=== PATIENT | male | born 1975 | race Caucasian/White ===

== ENCOUNTER 2025-01-13 12:15 | Emergency (ER) | payer OTHER, SELFPAY ==
[2025-01-13 12:17] VITALS: BP 202/107; PULSE 131; RESP 18; TEMP 36.9; O2SAT 98; BMI 50.6
--- NOTE | 2025-01-13 12:54 | EKG12_ITS ---
Test Reason : SYNCOPE Blood Pressure : */* mmHG Vent. Rate : 120 BPM Atrial Rate : 120 BPM P-R Int : 182 ms QRS Dur : 74 ms QT Int : 310 ms P-R-T Axes : 56 23 4 degrees QTcB Int : 438 ms Sinus tachycardia Possible Left atrial enlargement Nonspecific T wave abnormality Abnormal ECG Confirmed by TIFFANIE BARROW, OTTONIEL ([id number]), book editor DEYVI ALCANTAR ([id number]) on 01/14/2025 6:51:14 AM Referred By: UG/SOFIA Confirmed By: OTTONIEL MORENO MD
[2025-01-13 13:06] LABS: Hematocrit 46.5 % (40-54); Hemoglobin 15.8 g/dL (13.0-16.5); Immature Granulocytes Count 0.030 X10^3/uL (0.0-0.0); Mean Corp Hgb Conc 34.0 g/dL (32-36); Mean Corpuscular Volume 86.3 fL (80-94); Mean Platelet Vol. 10.2 fl (6.2-12.0); NRBC Flagged by Analyzer 0 % (0-5); Platelet Count 241 K/mm3 (150-450); RBC Distribution Width CV 12.4 % (11.6-14.6); RBC Distribution Width SD 39.0 fl (35.1-43.9); Red Blood Count 5.39 M/mm3 (4.6-6.2); White Blood Count 8.3 K/mm3 (4.4-11.0)
[2025-01-13 13:16] VITALS: BP 180/81; PULSE 105; RESP 18; O2SAT 99
[2025-01-13 13:16] LABS: D-Dimer Quantitative (DVT/PE) 0.29 FEU/ug/m (0.27-0.49)
[2025-01-13 13:21] LABS: Troponin T High Sensitivity < 6 ng/L (<=22)
[2025-01-13 13:29] LABS: Anion Gap 15 (5-15); BUN 16 mg/dL (4-19); BUN/Creat Ratio 14.5 RATIO (10-20); Calcium,Total 8.8 mg/dL (7.6-11.0); Carbon Dioxide 23.5 mmol/L (21.0-32.0); Chloride 99 mmol/L (98-108); Estimated Creatinine Clearance 111.24 ml/min (50-250); Glucose 186 mg/dL (70-99); Potassium 3.1 mmol/L (3.3-5.1)
[2025-01-13 14:00] VITALS: BP 155/83; PULSE 100; RESP 18; O2SAT 99
[2025-01-13 15:00] VITALS: BP 132/71; PULSE 104; O2SAT 98
[2025-01-13 15:14] LABS: Troponin T High Sens 2 HR < 6 ng/L (<=22)
[2025-01-13 16:00] VITALS: BP 120/75; PULSE 101; RESP 9; O2SAT 98
--- NOTE | 2025-01-13 16:22 | EX.ED.DYSGE1 ---
HPI History of Present Illness Chief Complaint: Syncope Detail of Chief Complaint: Dizziness and elevated blood pressure and not feeling right Informant: patient Onset/Context/Timing Onset: Today Context: Sudden Onset Timing: Intermittent Quality: Dizziness and bilateral blurred vision with palpitations Location: Presents from work Current Severity: Detailed HPI narrative Maximum Severity: Detailed HPI narrative Worsened by: Upright position Relieved by: Not applicable Associated Symptoms Associated Symptoms: No other symptoms Narrative Narrative: Patient is a 49-year-old male. He has known history of hypertension. He presents from work because he felt dizzy . When asked to define dizzy he did not describe the room or him spinning. He did not endorse lightheadedness. He presently denies blurred vision. He denied double vision or loss of vision. He denied trouble with speech or swallowing. He denied chest pressure, tightness or heaviness. He has no history of VTE and has no risk factors for VTE. He denies leg pain, swelling discoloration. He denies abdominal pain. He did endorse mild nausea. He denied vomiting, diarrhea or constipation. Denies black or maroon-colored stool. He denies urologic symptoms. He denies neurologic symptoms. He has no complaint of anesthesia or paresthesia upper or lower extremity. He denies weakness in his arms or legs. Prior similar symptoms: No Recent Illness/Hospitalization: [facility] Medical History Hypertension Home Medications ?Medication ?Instructions ?Recorded ?Last Taken ?Type chlorthalidone 25 mg tablet 25 mg PO DAILY 01/13/25 01/12/25 History losartan 25 mg tablet 25 mg PO DAILY 01/13/25 01/12/25 History Allergy/AdvReac Type Severity Reaction Status Date / Time No Known Allergies Allergy Verified 01/13/25 12:18 Social History (Updated 01/13/25 @ 16:[address] Darrian De Leon MD) household members: spouse Smoking Status: Never smoker ROS ROS ED Constitutional Constitutional ED: Denies chills, fever(s), subjective, sweats or weight loss Eyes Eyes: Reports blurry vision bilateral; Denies change in vision or diplopia ENT ENT ED: Denies ear pain, rhinorrhea or sore throat Cardiovascular Cardiovascular: Denies chest pain, orthopnea, palpitations, paroxysmal nocturnal dyspnea or racing heartbeat Respiratory/Chest Respiratory/Chest: Denies cough, dyspnea, dyspnea on exertion, orthopnea or paroxysmal nocturnal dyspnea Gastrointestinal Gastrointestinal: Denies abdominal pain, constipation, diarrhea, melena, nausea or vomiting Genitourinary Genitourinary ED: Denies dysuria, hematuria or urinary frequency Musculoskeletal Musculoskeletal: Denies arthralgias, back pain or myalgias Integumentary Denies rash Neurologic Neurologic: Denies headache(s), paresthesias or weakness Psychiatric Psychiatric: Denies anxiety or depression Endocrine Endocrinology: Denies cold intolerance or heat intolerance Hematologic/Lymphatic Hematologic/Lymphatic: Reports systems reviewed and no addt'l complaints, except as documented Allergic/Immunologic Allergic/Immunologic ED: Denies mouth swelling, tongue swelling or urticaria EXAM Physical Exam Const Vital Signs: 01/13/25 12:17 01/13/25 13:16 01/13/25 14:00 Temperature 98.4 F Temperature Source Oral Pulse Rate 131 H 105 H 100 Respiratory Rate 18 18 18 Blood Pressure 202/107 H 180/81 H 155/83 H Blood Pressure Mean 138 114 107 Pulse Ox 98 99 99 Oxygen Delivery Method Room Air 01/13/25 15:00 01/13/25 16:00 Temperature Temperature Source Pulse Rate 104 H 101 H Respiratory Rate 9 L Blood Pressure 132/71 H 120/75 Blood Pressure Mean 91 90 Pulse Ox 98 98 Oxygen Delivery Method Room Air Room Air Positive well nourished and well developed Constitutional Narrative: Blood pressure is elevated. He states at home his blood pressure systolic is in the 120s. States it is normally 140 when he sees his doctor. General Appearance ED: well developed and NAD; Negative for cyanotic, diaphoretic or pallor HEENT Reports moist mucous membranes HEENT Narrative: Head is atraumatic and normocephalic. Ears are normal. Nares patent. Posterior pharynx normal. Uvula midline. No deviation tongue or protrusion. Eyes PERRL and EOMs intact bilaterally General Eye ED: Negative for pale conjunctiva or scleral icterus Neck no lymphadenopathy, supple and no JVD Chest Wall inspection of chest normal and palpation of chest normal Resp normal respiratory effort and clear to auscultation bilaterally Cardio regular rhythm, S1 normal heart sound, S2 normal heart sound and no murmurs; Negative for regular rate Rate: tachycardic GI normal to inspection, nondistended, normoactive bowel sounds, non-tender, non-distended and no masses; Negative for hepatosplenomegaly Back/Spine no CVA tenderness Extremity normal to inspection Extremity Narrative: There is no asymmetry, swelling, discoloration, leg vein distention, palpable cords or tenderness along the distribution of the deep venous system. Neuro oriented x3, CN's II-XII intact bilaterally and no sensory deficits noted Neuro Narrative: There is no dysmetria. Negative Babinski sign bilaterally. No clonus at the ankles. Sensorium / Orientation: alert Motor Exam: strength 5/5 throughout Psych mental status grossly normal Skin no rashes or lesions noted, no wounds and skin turgor normal General Skin Exam: elasticity normal; Negative for jaundice or pallor MDM MDM MDM Narrative Medical decision making narrative: Differential diagnosis is tachycardia due to anxiety, infectious process, pulmonary embolus and anemia. He does not have symptoms to suggest hyperthyroidism. His blood pressure is elevated. This may have been the reason for his transient bilateral blurred vision. Will obtain appropriate blood work to assess for endorgan dysfunction. EKG was obtained to see if there is any evidence of ischemia, findings suggest preexcitation syndrome or right heart strain that would suggest pulmonary embolus. Lab Data Attestation: I reviewed the patient's lab results. Lab results narrative: CBC is normal. 1st and 2nd troponin are less than 6. This rules out cardiac disease. TSH was obtained to evaluate for thyroid disease and negative. Electrolyte panel is remarked for slight decrease in potassium at 3.1. This would not explain patient's symptoms. Glucose is elevated 186. He does not have history of diabetes. He will need to follow-up to have his blood sugar reassessed again. Labs: Laboratory Results - last 24 hr 01/13/25 01/13/25 12:45 14:35 WBC 8.3 RBC 5.39 Hgb 15.8 Hct 46.5 MCV 86.3 MCH 29.3 MCHC 34.0 RDW Std Deviation 39.0 RDW Coeff of Denis 12.4 Plt Count 241 MPV 10.2 Immature Gran % (Auto) 0.400 Neut % (Auto) 65.7 Lymph % (Auto) 25.5 [place] % (Auto) 6.8 Eos % (Auto) 0.8 Baso % (Auto) 0.8 Absolute Neuts (auto) 5.5 Absolute Lymphs (auto) 2.11 Nucleated RBC % 0 D-Dimer Quant (PE/DVT) 0.29 Sodium 137 Potassium 3.1 L Chloride 99 Carbon Dioxide 23.5 Anion Gap 15 BUN 16 Creatinine 1.07 Estim Creat Clear Calc 111.24 Est GFR (MDRD) Non-Af 86 BUN/Creatinine Ratio 14.5 Glucose 186 H Calcium 8.8 Troponin T High Sens < 6 Troponin T Hi Sens 2 Hr < 6 TSH 2.460 Treatment and Re-Evaluation :: He and his were informed of results. He was not told initially of his elevated blood sugar. Discharge Plan Triage Chief Complaint: Syncope ED Provider: Darrian De Leon Dx/Rx/DC Orders Clinical Impression: Hypertension, Sinus tachycardia, Heart palpitations, Nondiabetic hyperglycemia Instructions: ED About Arrhythmias, ED Hypertension, Established Prescriptions: No Action chlorthalidone 25 mg tablet 25 mg PO DAILY losartan 25 mg tablet 25 mg PO DAILY Primary Care Provider: Santo Kelley Referrals: Santo Kelley MD [Primary Care Provider, Internal Medicine] - 1 Week Print Language: Ken[place] Disposition Disposition: Home, Self Care
[2025-01-13 16:36] VITALS: BP 136/72; PULSE 98; RESP 18; TEMP 36.9; O2SAT 98
== END 2025-01-13 16:40 | disposition home or self-care (01) ==
PROVIDERS: Emergency Provider Emergency Medicine; PCP Internal Medicine; Visit Provider Emergency Medicine
DX: I10 Essential (primary) hypertension (principal); R00.2 Palpitations; R00.0 Tachycardia, unspecified; R73.9 Hyperglycemia, unspecified; Z79.899 Other long term (current) drug therapy
CPT/HCPCS: 80048; 84443; 84484; 85025; 85379; 93005; 99284; A4216